=== PATIENT | male | born 1985 | race Hispanic/Latino ===

== ENCOUNTER → 2023-01-26 | Outpatient (REF) | payer OTHER | LOC: M LAB REF 09:46 | PROVIDERS: ATTEND Nurse Practitioner Family | DX: R19.7 Diarrhea, unspecified (principal) ==

== ENCOUNTER 2023-02-02 08:49 | Day surgery (SDC) | payer OTHER ==
[~2023-02-02] VITALS: Ht 200.7 cm; Wt 89.3 kg
[~2023-02-02 08:49] MED LIST: ALLE12TA31 PO; BENA25TA5 PO; NS 1,000 ML IV ONE; ZYRTTAB8 PO
[2023-02-02] MEDS ORDERED: propofoL 200 MG/20 ML VIAL As Ordered ONE ×3 (11:26→11:42)
[2023-02-02 12:08] VITALS: BP 141/84
== END 2023-02-02 12:25 | disposition home or self-care (01) ==
LOC: M OPP 08:49
PROVIDERS: ATTEND Internal Medicine Gastroenterology
DX: K57.30 Diverticulosis of large intestine without perforation or abscess without bleeding (principal); K64.4 Residual hemorrhoidal skin tags; K64.8 Other hemorrhoids; G47.33 Obstructive sleep apnea (adult) (pediatric); Z79.899 Other long term (current) drug therapy